=== PATIENT | male | born 1950 | race Caucasian/White ===

== ENCOUNTER 2019-08-07 12:15 | Emergency (ER) | payer MEDICARE, OTHER ==
[~2019-08-07] VITALS: Wt 99.8 kg
[2019-08-07] MEDS ORDERED: CEPHALEXIN500 M1 PO (14:35)
== END 2019-08-07 14:52 | disposition home or self-care (01) ==
LOC: ED 12:15
DX: S61.213A Laceration without foreign body of left middle finger without damage to nail, initial encounter (principal); Z91.040 Latex allergy status; W45.8XXA Other foreign body or object entering through skin, initial encounter; Y93.89 Activity, other specified; Y92.098 Other place in other non-institutional residence as the place of occurrence of the external cause; Y99.8 Other external cause status

== ENCOUNTER 2019-08-21 19:03 | Emergency (ER) | payer MEDICARE, OTHER ==
[~2019-08-21] VITALS: Ht 187.9 cm; Wt 102.1 kg
[~2019-08-21 19:03] MED LIST: CEPHALEXIN500 M1 PO
== END 2019-08-21 19:28 | disposition home or self-care (01) ==
LOC: ED 19:03
DX: S61.211D Laceration without foreign body of left index finger without damage to nail, subsequent encounter (principal); Z79.2 Long term (current) use of antibiotics; W45.8XXD Other foreign body or object entering through skin, subsequent encounter